=== PATIENT | male | born 1965 | race Caucasian/White ===

== ENCOUNTER 2024-10-08 07:24 | Outpatient (CLI) | payer OTHER ==
[~2024-10-08] VITALS: Ht 188 cm; Wt 149.7 kg
[2024-10-08 08:31] VITALS: BP 150/90
[2024-10-08 08:50] LABS: BASO % 0.6 % (0.1-1.2); EOS # 0.23 (0.04-0.54); EOS % 2.9 % (0.7-7.0); LYMPH # 3.48 (1.18-3.74); LYMPH % 44.6 % (19.3-53.1); MEAN PLATELET VOLUME 11.30 fl (9.4-12.4); MONO # 0.61 (0.24-0.82); MONO % 7.8 % (4.7-12.5); NEUT # 3.41 (1.56-6.13); NEUT % 43.8 % (34.0-71.1); RED CELL DISTRIBUTION WIDTH 12.4 % (11.6-14.4)
[2024-10-08 09:06] LABS: URINE APPEARANCE Clear; URINE BILIRRUBIN Negative (NEGATIVE); URINE BLOOD Trace; URINE COLOR Yellow; URINE GLUCOSE Negative (NEGATIVE); URINE KETONE Trace (NEGATIVE); URINE LEUKOCYTE Negative; URINE NITRATE Negative; URINE PROTEIN Negative (NEGATIVE); URINE UROBILINOGEN 1.0 E.U./dl
[2024-10-08 09:07] LABS: URINE EPITHELIAL CELLS 2.2 uL (0.0-38.8); URINE RBC 41.3 uL (0.0-20.8); URINE WBC 2.9 uL (0.0-23.2)
[2024-10-08 09:12] LABS: URINE BACTERIA 3.5 uL (0.0-1933)
[2024-10-08 09:13] LABS: URINE CAST 0.00 uL (0.0-1.40)
[2024-10-08 09:17] LABS: INR 1.02
[2024-10-08 09:21] LABS: ALT/SGPT 45.0 U/L (12-78); AST/SGOT 19.0 U/L (15-37); BILIRUBIN TOTAL 1.23 mg/dL (0.3-1.2); BUN CREA RATIO 17.0 (7.0-25.0); CREATININE SERUM 0.83 mg/dL (0.70-1.30); GFR 94.19; GLOBULINA 3.0 G/DL (2.4-3.5); GLUCOSE FASTING 97.0 mg/dL (65-100); OSMOLALITY SERUM 289.0 MOSM/KG (275-295)
[2024-10-08 09:44] LABS: COL EPI 104 SECONDS (82-175)
== END 2024-10-08 07:41 | disposition home or self-care (01) ==
LOC: RAD 07:24
PROVIDERS: ATTEND Orthopaedic Surgery
DX: D64.9 Anemia, unspecified (principal); E88.9 Metabolic disorder, unspecified; D68.8 Other specified coagulation defects; N39.0 Urinary tract infection, site not specified; Z22.322 Carrier or suspected carrier of Methicillin resistant Staphylococcus aureus; E11.9 Type 2 diabetes mellitus without complications; Z20.822 Contact with and (suspected) exposure to COVID-19; Z76.89 Persons encountering health services in other specified circumstances; I10 Essential (primary) hypertension

== ENCOUNTER 2024-10-17 12:15 | Inpatient (IN) | payer OTHER ==
[~2024-10-17] VITALS: Ht 188 cm; Wt 147.4 kg
[2024-10-17] MEDS ORDERED: COZAAR25 MG PO (15:25)
[2024-10-23] MEDS ORDERED: TRANEXAMIC ACID 100MG/1ML (1000MG) AMPUL IV ONE ×2 (12:45)
[2024-10-23] MEDS ORDERED: MORPHINE SULFATE 4 MG/ML CARTRIDGE IV ONE (12:45)
[2024-10-23] MEDS ORDERED: KETOROLAC TROMETHAMINE 10 MG TABLET PO ONE ×2 (12:45→22:55)
[2024-10-23] MEDS ORDERED: BUPIVACAINE HCL 30 ML VIAL IJ ONE (12:45)
[2024-10-23] MEDS ORDERED: CEFAZOLIN SODIUM 1,000 MG VIAL IV ONE (12:45)
[2024-10-23] MEDS ORDERED: LIDOCAINE HCL 1%/EPINEPHRINE 20ML VIAL IJ ONE (12:45)
[2024-10-23] MEDS ORDERED: ISOPROPYL ALCOHOL 30 ML OUNCE TOP ONE ×2 (12:45→15:12)
[2024-10-23] MEDS ORDERED: CEFAZOLIN SODIUM 1,000 MG VIAL IV SCH (17:33)
[2024-10-23] MEDS ORDERED: PANTOPRAZOLE SODIUM 40 MG TABLET.DR PO SCH (17:34)
[2024-10-23] MEDS ORDERED: ONDANSETRON HCL 2 MG/ML VIAL IV PRN (17:45)
[2024-10-23] MEDS ORDERED: MEPERIDINE HCL/PF 50 MG/ML VIAL IM PRN (17:45)
[2024-10-23] MEDS ORDERED: ONDANSETRON 4 MG TAB.RAPDIS PO PRN (17:45)
[2024-10-23] MEDS ORDERED: PROMETHAZINE HCL 50 MG/ML AMPUL IM PRN (17:45)
[2024-10-23] MEDS ORDERED: TRAMADOL HCL 50 MG TABLET PO PRN (17:45)
[2024-10-23] MEDS ORDERED: SODIUM CHLORIDE 0.45 % 1,000 ML IV SCH (17:45)
[2024-10-23] MEDS ORDERED: MORPHINE SULFATE 4 MG/ML VIAL IV ONE (19:30)
[2024-10-23] MEDS ORDERED: KETOROLAC TROMETHAMINE 10 MG TABLET PO SCH (21:00)
[2024-10-23] MEDS ORDERED: ACETAMINOPHEN 325 MG TABLET PO SCH (21:00)
[2024-10-23] MEDS ORDERED: ACETAMINOPHEN 325 MG TABLET PO ONE (22:46)
[2024-10-24] MEDS ORDERED: KETOROLAC TROMETHAMINE 10 MG TABLET PO ONE (00:17)
[2024-10-24] MEDS ORDERED: ACETAMINOPHEN 325 MG TABLET PO ONE ×2 (00:17→08:15)
[2024-10-24] MEDS ORDERED: CELECOXIB 200 MG CAPSULE PO ONE ×2 (00:17→08:15)
[2024-10-24] MEDS ORDERED: CEFAZOLIN SODIUM 1,000 MG VIAL ONE ×2 (00:18→08:15)
[2024-10-24] MEDS ORDERED: CELECOXIB 200 MG CAPSULE PO SCH (01:00)
[2024-10-24 06:41] LABS: BASO % 0.2 % (0.1-1.2); EOS # 0.00 (0.04-0.54); EOS % 0.0 % (0.7-7.0); LYMPH # 1.72 (1.18-3.74); LYMPH % 9.7 % (19.3-53.1); MEAN PLATELET VOLUME 11.30 fl (9.4-12.4); MONO # 0.79 (0.24-0.82); MONO % 4.5 % (4.7-12.5); NEUT # 15.13 (1.56-6.13); NEUT % 85.2 % (34.0-71.1); RED CELL DISTRIBUTION WIDTH 12.6 % (11.6-14.4)
[2024-10-24] MEDS ORDERED: RIVAROXABAN 10 MG TAB PO SCH (09:00)
[2024-10-24] MEDS ORDERED: CELECOXIB200 MG (09:12)
[2024-10-24] MEDS ORDERED: XARELTO10 M1 (09:13)
[2024-10-24] MEDS ORDERED: LOSARTAN POTASS25 MG (09:13)
[2024-10-24 16:06] VITALS: BP 166/88
[2024-10-24] MEDS ORDERED: ENALAPRILAT DIHYDRATE 1.25 MG/ML VIAL IV PRN (17:15)
[2024-10-25 00:54] VITALS: BP 146/97; O2SAT 95
[2024-10-25 06:22] LABS: BASO % 0.1 % (0.1-1.2); EOS # 0.00 (0.04-0.54); EOS % 0.0 % (0.7-7.0); LYMPH # 1.67 (1.18-3.74); LYMPH % 9.1 % (19.3-53.1); MEAN PLATELET VOLUME 12.00 fl (9.4-12.4); MONO # 0.97 (0.24-0.82); MONO % 5.3 % (4.7-12.5); NEUT # 15.51 (1.56-6.13); NEUT % 84.9 % (34.0-71.1); RED CELL DISTRIBUTION WIDTH 12.5 % (11.6-14.4)
[2024-10-25 08:01] VITALS: BP 142/83
[2024-10-25] MEDS ORDERED: SENNA/DOCUSATE SODIUM 1 TAB TABLET PO SCH (09:00)
[2024-10-25] MEDS ORDERED: LOSARTAN POTASSIUM 25 MG TABLET PO SCH (09:00)
[2024-10-25 16:42] LABS: COVID-19 AG NEGATIVE (NEGATIVE)
[2024-10-25 16:57] VITALS: BP 118/52
== END 2024-10-25 17:23 | DRG 470 ==
LOC: SURH 10-23 07:00 → O/R 10-23 10:43 → SURH 10-23 12:15 → MEDI 10-24 09:31
PROVIDERS: ADMIT Orthopaedic Surgery; ATTEND Orthopaedic Surgery
PROC: 0QUD0KZ Supplement Right Patella with Nonautologous Tissue Substitute, Open Approach (ICD-10-PCS; 2024-10-23)
PROC: 0SRC0J9 Replacement of Right Knee Joint with Synthetic Substitute, Cemented, Open Approach (ICD-10-PCS; principal; 2024-10-23 07:00)
DX: M17.11 Unilateral primary osteoarthritis, right knee (principal); M85.661 Other cyst of bone, right lower leg; I10 Essential (primary) hypertension

== ENCOUNTER → 2025-01-01 | Outpatient (CLI) | payer OTHER ==
[~2025-01-01] MED LIST: CELECOXIB200 MG; COZAAR25 MG PO; LOSARTAN POTASS25 MG; XARELTO10 M1
== END | disposition home or self-care (01) ==
LOC: NUCLEAR 08:43
PROVIDERS: ATTEND Orthopaedic Surgery
DX: I87.2 Venous insufficiency (chronic) (peripheral) (principal)